=== PATIENT | male | born 1940 | race Caucasian/White ===

== ENCOUNTER 2024-11-06 13:58 | Day surgery (SDC) | payer MEDICARE ==
[2024-11-03 10:41] LABS: BASOPHILS % (AUTO) 0.4 % (0-1); EOSINOPHILS # (AUTO) 0.1 X10'3 (0-0.9); EOSINOPHILS % (AUTO) 1.8 % (0-6); LYMPHOCYTES # (AUTO) 0.9 X10'3 (1.1-4.8); LYMPHOCYTES % (AUTO) 16.1 % (21-51); MEAN CORPUSCULAR HEMOGLOBIN 32.7 PG (27.0-31.0); MEAN CORPUSCULAR HGB CONC 34.9 g/dL (33.0-36.5); MEAN CORPUSCULAR VOLUME 93.9 FL (78-98); MEAN PLATELET VOLUME 7.1 FL (7.4-10.4); MONOCYTES # (AUTO) 0.8 X10'3 (0-0.9); NEUTROPHILS # (AUTO) 3.5 X10'3 (1.8-7.7); NEUTROPHILS % (AUTO) 66.7 % (42-75); PRE OP HEMATOCRIT 40.5 % (42.0-52.0); PRE OP HEMOGLOBIN 14.1 g/dL (14.0-17.9); PRE OP PLATELET COUNT 156 X10'3 (140-440); PRE OP WHITE BLOOD COUNT 5.3 10'3 (4.8-10.8); RED BLOOD COUNT 4.31 X10'6 (4.70-6.10); RED CELL DISTRIBUTION WIDTH 13.5 % (11.5-14.5)
[2024-11-03 10:56] LABS: ALBUMIN 3.4 G/DL (3.4-5.0); ALBUMIN/GLOBULIN RATIO 0.9 (1.1-1.5); ALKALINE PHOSPHATASE 62 IU/L (46-116); BLOOD UREA NITROGEN 21 MG/DL (7-18); BUN/CREATININE RATIO 18.1 (10.0-20.0); CALCIUM 8.9 MG/DL (8.5-10.1); CHLORIDE 104 MMOL/L (99-107); CREATININE 1.16 MG/DL (0.60-1.10); PRE OP ALT 20 U/L (30-65); PRE OP ANION GAP 6 (8-16); PRE OP AST 14 U/L (10-37); PRE OP BILIRUB, TOTAL 0.8 MG/DL (0.0-1.0); PRE OP GLUCOSE 104 MG/DL (70-104); PRE OP POTASSIUM 3.6 MMOL/L (3.4-5.1); PRE OP SODIUM 141 MMOL/L (135-145); TOTAL CARBON DIOXIDE 31.4 MMOL/L (24-32); TOTAL PROTEIN 7.3 G/DL (6.4-8.2); eGFR 60 ML/MIN
[2024-11-06] VITALS (9 sets, daily range): BP systolic 103–138; BP diastolic 57–80; PULSE 63–84; RESP 13–16; TEMP 98.5; O2SAT 94–99
[~2024-11-06] VITALS: Ht 177.8 cm; Wt 79.3 kg
[2024-11-06] MEDS: ceFAZolin 2gm in dextrose, iso 50 ML IV ONE (05:30)
[~2024-11-06 13:58] MED LIST: LISI1TAB53 PO; fentaNYL/PF 50MCG/1 ML 2ML syringe IV PRN; hydrALAZINE 20mg/ml inj. IV PRN; labetalol 20mg/4ml (5mg/ml) syringe IV PRN; morphine 2 MG/ML inj. syringe IV PRN; ondansetron/PF 4mg/2ml inj IV PRN; ringers solution, lacted 1,000 ML IV SCH
[2024-11-06] MEDS ORDERED: BUPIVAcaine 2.5mg/ml inj 50ml vial (contains preservative) ONE (14:04)
[2024-11-06] MEDS ORDERED: LIDOcaine 1% 30ml preserv. free vial ONE (14:04)
[2024-11-06] MEDS: ringers solution, lacted 1,000 ML IV SCH (14:26)
[2024-11-06] MEDS: famotidine 20mg tablet PO ONE (14:26)
[2024-11-06] MEDS: tamsulosin 0.4mg capsule PO ONE (14:29)
[2024-11-06] MEDS ORDERED: desflurane 240ml liquid inh. IH ONE (16:27)
[2024-11-06] MEDS ORDERED: fentaNYL/PF 50MCG/1 ML 2ML syringe ONE (16:28)
[2024-11-06] MEDS ORDERED: propofol inj 20 ML IV ONE (16:29)
[2024-11-06] MEDS ORDERED: rocuronium 10mg/ml inj IV ONE (16:29)
[2024-11-06] MEDS ORDERED: LIDOcaine 1%/PF 5ML 10 MG/ML VIAL ONE (16:29)
[2024-11-06] MEDS ORDERED: midazolam 1 mg/ML 2ml injection ONE (16:29)
[2024-11-06] MEDS ORDERED: ondansetron/PF 4mg/2ml inj ONE (16:30)
[2024-11-06] MEDS ORDERED: dexamethasone sod phosphate 4mg/ml inj. ONE (16:30)
[2024-11-06] MEDS ORDERED: neostigmine methylsulfate 1 MG/ML 10ml vial ONE (16:41)
[2024-11-06] MEDS ORDERED: acetaminophen 1,000mg/100ml IV 100 ML IV ONE (16:41)
[2024-11-06] MEDS: morphine 4 MG/ML inj SYRINge IV PRN (19:05)
[2024-11-06] MEDS: HYDROcodone/acetaminophen 5mg/325mg tablet PO PRN (19:11)
== END 2024-11-06 19:50 | disposition home or self-care (01) ==
LOC: PAS 13:58 → EDSEX 17:00 → PAS 19:50
PROVIDERS: ATTEND Surgery
DX: K40.30 Unilateral inguinal hernia, with obstruction, without gangrene, not specified as recurrent (principal); K42.9 Umbilical hernia without obstruction or gangrene; I10 Essential (primary) hypertension; Z79.899 Other long term (current) drug therapy; Z98.890 Other specified postprocedural states; Z98.49 Cataract extraction status, unspecified eye
CPT/HCPCS: 36415; 49591; 49650; 80053; 82948; 85025; 93005; A4215; A4618; C1781; J0131; J0690; J1100; J2003; J2250; J2270; J2405; J2704; J2710; J3010; J3490; J7030; J7120; Z7506; Z7508; Z7512; Z7610; J2371